=== PATIENT | female | born 1970 | race Caucasian/White ===

== ENCOUNTER 2017-07-06 16:41 | Emergency (ER) | payer BC ==
[2017-07-06 16:57] VITALS: BP 169/100
[2017-07-06] MEDS ORDERED: Tetan/Diph/Pertus SYR(Tdap)* 0.5 ML SYR(BOOSTRIX) use SYR IM ONE (16:59)
[2017-07-06] MEDS ORDERED: Lidocaine 2% 10 ML* VIAL INJ ONE (17:04)
[2017-07-06] MEDS ORDERED: Lidocaine 2% PF * 5 ML VIAL ONE (17:07)
[2017-07-06] MEDS ORDERED: Lidocaine 2% PF * 5 ML VIAL INJ ONE (17:07)
[2017-07-06] MEDS ORDERED: Ibuprofen TAB* 800 MG PO ONE (17:08)
--- NOTE | 2017-07-06 18:04 | RAD ---
INDICATION: Laceration COMPARISON: None TECHNIQUE: AP, lateral, and oblique views were obtained. FINDINGS: The soft tissue injury Elbow. There is no fracture or foreign body. IMPRESSION: SOFT TISSUE INJURY. NO FRACTURE.
--- NOTE | 2017-07-06 18:04 | ED ---
Upper Extremity Pain - HPI Summary HPI Summary: Rt hand dominant pt here w/ Lt finger tip avulsion injury while working with table saw tonight. Pain is moderate to severe. Has not tried anything for pain prior to arrival. Denies numbness, tingling, weakness. She is unsure of last tetanus vaccine and none given here per our records. Would like something for pain KENYON. - History of Current Complaint Chief Complaint: EDExtremityUpper Stated Complaint: FINGER LACERATOIN Time Seen by Provider: 07/06/17 16:57 Hx Obtained From: Patient - Allergies/Home Medications Allergies/Adverse Reactions: Allergies Allergy/AdvReac Type Severity Reaction Status Date / Time Penicillins [PCN] Allergy Unknown Verified 04/28/16 13:57 Reaction Details Hydrocodone AdvReac Intermediate Itching Verified 04/28/16 13:57 PMH/Surg Hx/FS Hx/Imm Hx Previously Healthy: Yes Endocrine/Hematology History: Denies: Hx Anticoagulant Therapy, Hx Blood Disorders Musculoskeletal History: Reports: Other Musculoskeletal History - right elbow lateral release s/p orthopaedic procedure Neurological History: Reports: Other Neuro Impairments/Disorders - HX BACK PAIN - SEES A CHIROPRACTOR Psychiatric History: Reports: Other Psychiatric Issues/Disorders - insomnia - takes trazodone and ambien - Surgical History Surgery Procedure, Year, and Place: [place]. intestinal surgery. bilateral elbow surgery. Tubal ligation Infectious Disease History: No Infectious Disease History: Denies: History Other Infectious Disease, Traveled Outside the [place] in Last 30 Days - Family History Known Family History: Positive: Other - positive for breast CA. - Social History Occupation: Employed Full-time - small business consultant Lives: With Family Alcohol Use: Rare Hx Substance Use: No Substance Use Type: Reports: None Hx Tobacco Use: No Smoking Status (MU): Never Smoked Tobacco Review of Systems Constitutional: Negative Negative: Vomiting, Nausea Positive: no symptoms reported Musculoskeletal: Other - pain as in HPI Skin: Other - lac as in HPI Neurological: Negative Negative: Weakness, Paresthesia, Numbness Positive: Anxious All Other Systems Reviewed And Are Negative: Yes Physical Exam Triage Information Reviewed: Yes Vital Signs On Initial Exam: Initial Vitals Temp Pulse Resp BP Pulse Ox 98.8 F 103 18 169/100 98 07/06/17 16:52 07/06/17 16:52 07/06/17 16:52 07/06/17 16:52 07/06/17 16:52 Vital Signs Reviewed: Yes Appearance: Positive: Well-Appearing, Well-Nourished, Pain Distress Skin: Positive: Warm - distal tip of Lt index finger w/ dorsal aspect with partial removal of nail and skin - no active bleeding at present but has sersanginous d/c - appears clean, no debris Head/Face: Positive: Normal Head/Face Inspection Eyes: Positive: EOMI ENT: Positive: Hearing grossly normal Respiratory/Lung Sounds: Positive: Breath Sounds Present Cardiovascular: Positive: Pulses are Symmetrical in both Upper and Lower Extremities Musculoskeletal: Positive: Normal, Strength/ROM Intact Neurological: Positive: Normal, Sensory/Motor Intact Psychiatric: Positive: Anxious - Mal Coma Scale Coma Scale Total: 15 Procedures - Laceration/Wound Repair 1 Location: upper extremity - Lt index finger Description: Irregular - avulsion Anesthesia: Digital, 2.0%, Lido Length, Depth and Shape: 6mm are involved Betadine Prep?: No Irrigated w/ Saline (ccs): 100 - sterile water and hibaclens Laceration/Wound Explored: clean Layer Closure?: No Sterile Dressing Applied?: Yes - xerform + gauze + coban Diagnostics - Vital Signs Vital Signs Temp Pulse Resp BP Pulse Ox 07/06/17 16:52 98.8 F 103 18 169/100 98 - Laboratory Lab Statement: Any lab studies that have been ordered have been reviewed, and results considered in the medical decision making process. Course/Dx - Diagnoses Provider Diagnoses: Avulsion of skin of index finger Discharge - Discharge Plan Condition: Stable Disposition: HOME Patient Education Materials: Skin Avulsion (ED) Referrals: Isha Naylor MD [Primary Care Provider] - Additional Instructions: Keep dressing clean, dry and in place for 48 hours. After this time, follow-up with PCP for wound check and redressing. Rest, ice, elevate and may wear splint for protection - PCP may guide you on further wound care as needed You may take ibuprofen alternating with acetaminophen for pain - if pain is worse or interfering with sleep, you may consider taking percocet - do not mix with trazodone and ambien as the combination may reduce ability to breath and impair decision making. Call your PCP tomorrow to schedule follow-up. *If you develop redness, swelling, purulent drainage, fever, chills in the meantime, seek medical attention KENYON
== END 2017-07-06 18:32 | disposition home or self-care (01) ==
LOC: ED 16:41
DX: S61.201A Unspecified open wound of left index finger without damage to nail, initial encounter (principal)
CPT/HCPCS: 73140; 90471; 90715; 99281; A9270-GY; J2001

== ENCOUNTER 2017-07-08 09:45 | Emergency (ER) | payer BC ==
[2017-07-08 09:50] VITALS: BP 127/98
--- NOTE | 2017-07-08 10:08 | ED ---
ED Suture/Wound Check - HPI Summary HPI Summary: Rt hand dominant pt here w/ Lt finger tip avulsion injury while working with table saw friday07/06/17. Is here for a wound recheck. has not had any complications or complaints since injury. Pain is mild to moderate, throbs at times. Denies numbness, tingling, weakness. - History Of Current Complaint Chief Complaint: EDGeneral Stated Complaint: RE-CK LT FINGER LAC Time Seen by Provider: 07/08/17 09:52 Hx Obtained From: Patient Onset/Duration: Sudden Onset Surgical Site: right index finger Severity: Mild Pain Intensity: 0 Pain Scale Used: 0-10 Numeric Procedure Type: avulsion, covered with xeroform Surgery Date: 07/06/17 Hands: 1 - avulsion - Allergies/Home Medications Allergies/Adverse Reactions: Allergies Allergy/AdvReac Type Severity Reaction Status Date / Time Penicillins [PCN] Allergy Unknown Verified 04/28/16 13:57 Reaction Details Hydrocodone AdvReac Intermediate Itching Verified 04/28/16 13:57 PMH/Surg Hx/FS Hx/Imm Hx Endocrine/Hematology History: Denies: Hx Anticoagulant Therapy, Hx Blood Disorders Musculoskeletal History: Reports: Other Musculoskeletal History - right elbow lateral release s/p orthopaedic procedure Neurological History: Reports: Other Neuro Impairments/Disorders - HX BACK PAIN - SEES A CHIROPRACTOR Psychiatric History: Reports: Other Psychiatric Issues/Disorders - insomnia - takes trazodone and ambien - Surgical History Surgery Procedure, Year, and Place: [facility]. intestinal surgery. bilateral elbow surgery. Tubal ligation - Immunization History Immunizations Up to Date: Yes Infectious Disease History: No Infectious Disease History: Denies: History Other Infectious Disease, Traveled Outside the [place] in Last 30 Days - Family History Known Family History: Positive: Other - positive for breast CA. - Social History Alcohol Use: Occasionally Hx Substance Use: No Substance Use Type: Reports: None Hx Tobacco Use: No Smoking Status (MU): Never Smoked Tobacco Review of Systems Constitutional: Negative Cardiovascular: Negative Respiratory: Negative Positive: Other - skin avulsion left index Neurological: Negative All Other Systems Reviewed And Are Negative: Yes Physical Exam Triage Information Reviewed: Yes Vital Signs On Initial Exam: Initial Vitals Temp Pulse Resp BP Pulse Ox 98.3 F 107 20 127/98 98 07/08/17 09:46 07/08/17 09:46 07/08/17 09:46 07/08/17 09:46 07/08/17 09:46 Vital Signs Reviewed: Yes Appearance: Positive: Well-Appearing, No Pain Distress, Well-Nourished Skin: Positive: Warm, Skin Color Reflects Adequate Perfusion, Dry, Other - skin avulsion (6mm) area of left distal tuft/index finger, including nail, appears to be healing nicely, no signs of infection or concerns at this time. Negative : Cold, Numb, Cyanosis @, Pale, Erythema @ Head/Face: Positive: Normal Head/Face Inspection ENT: Positive: Hearing grossly normal Respiratory/Lung Sounds: Positive: Clear to Auscultation, Breath Sounds Present. Negative: Rales, Rhonchi, Wheezes Cardiovascular: Positive: Normal, RRR, Pulses are Symmetrical in both Upper and Lower Extremities - 2+ radial Musculoskeletal: Positive: Normal, Strength/ROM Intact, Pain @ - sesnitive to touch avulsed area Neurological: Positive: Normal, Sensory/Motor Intact, Alert, Oriented to Person Place, Time - Mal Coma Scale Coma Scale Total: 15 Procedures - Laceration/Wound Repair 1 Location: Other - left index tuft Length, Depth and Shape: 6mm avulsion including some of nail. distal left index tuft Laceration/Wound Explored: clean Sterile Dressing Applied?: Yes - xeroform, kerlex, coban Diagnostics - Vital Signs Vital Signs Temp Pulse Resp BP Pulse Ox 07/08/17 09:46 98.3 F 107 20 127/98 98 - Laboratory Lab Statement: Any lab studies that have been ordered have been reviewed, and results considered in the medical decision making process. Course/Dx - Course Course Of Treatment: appears to be healing nicely, no signs of infection. dressing changed, new xeroform, kerlex and coban applied. change dressing 2-3 days. gently rinse and air dry, keep clean and dry. aware of worsening signs and symptoms. recommended 7 day recheck to ensure improvement. ibuprofen and NSAIDs - Differential Diagnoses Differential Diagnoses: Healing Wound, Other - avulsion, wound recheck - Clinical Impression Provider Diagnoses: Encounter for wound re-check, Avulsion of skin of finger Discharge - Discharge Plan Condition: Stable Disposition: HOME Patient Education Materials: Skin Avulsion (ED), Nail Avulsion (ED) Referrals: Isha Naylor MD [Primary Care Provider] - Additional Instructions: Take dressing off in 2-3 days and look for signs of infection as discussed. Sooner if felt necessary. Gently rinse and wash, re-dress with triple antibiotic ointment. Keep clean and dry. Rest, elevate and apply cool compresses. Ibuprofen for pain and inflammation. Any new or worsening symptoms or signs of infection please seek medical attention immediately. Recommend re-check with PCP in 1 week.
== END 2017-07-08 10:10 | disposition home or self-care (01) ==
LOC: ED 09:45
DX: S61.211D Laceration without foreign body of left index finger without damage to nail, subsequent encounter (principal); W31.2XXD Contact with powered woodworking and forming machines, subsequent encounter
CPT/HCPCS: 99281

== ENCOUNTER 2017-07-28 12:16 | Emergency (ER) | payer BC ==
[2017-07-28 12:49] VITALS: BP 131/79
--- NOTE | 2017-07-28 14:02 | UC ---
Throat Pain/Nasal Alonso HPI - History of Current Complaint Chief Complaint: UCRespiratory Stated Complaint: COUGH Time Seen by Provider: 07/28/17 13:51 Hx Obtained From: Patient Hx Last Menstrual Period: 2 wks ago ?: No Onset/Duration: Gradual Onset, Lasting Weeks - 3 weeks, Still Present, Worse Since - 1 week Severity: Moderate Pain Intensity: 5 - sinus pain Pain Scale Used: 0-10 Numeric Cough: Nonproductive Associated Signs & Symptoms: Positive: Sinus Discomfort, Nasal Discharge - green discharge. Negative: Fever - Epiglottits Risk Factors Epiglottis Risk Factors: Negative - Allergies/Home Medications Allergies/Adverse Reactions: Allergies Allergy/AdvReac Type Severity Reaction Status Date / Time Penicillins [PCN] Allergy Unknown Verified 07/28/17 12:49 Reaction Details Hydrocodone AdvReac Intermediate Itching Verified 07/28/17 12:49 PMH/Surg Hx/FS Hx/Imm Hx Other History Of: Negative For: Anticoagulant Therapy - Surgical History Surgical History: Yes Surgery Procedure, Year, and Place: [place]. intestinal surgery. bilateral elbow surgery. Tubal ligation - Family History Known Family History: Positive: Other - positive for breast CA. - Social History Alcohol Use: Occasionally Substance Use Type: None Smoking Status (MU): Never Smoked Tobacco Physical Exam Vital Signs: Initial Vital Signs Temp 98.4 F 07/28/17 12:46 Pulse 92 07/28/17 12:46 Resp 18 07/28/17 12:46 BP 131/79 07/28/17 12:46 Pulse Ox 100 07/28/17 12:46 Discharge - Discharge Plan Condition: Stable Disposition: HOME Prescriptions: Albuterol HFA INHALER* [Ventolin HFA Inhaler*] 1 - 2 puff INH Q6H PRN #1 mdi PRN Reason: Cough Azithromyxin RANDI (NF) [Z-Randi (Zithromax) 250 mg tabs #6] 2 tab PO .TODAY, THEN 1 DAILY #6 tab Fluticasone NASAL SPRAY 50MCG* [Flonase NASAL SPRAY 50MCG*] 2 spray BOTH NARES DAILY #1 btl Patient Education Materials: Sinusitis (ED) Referrals: [facility] [place] [facility]ERR[facility] [Outside] - If Needed Additional Instructions: 1- Please increase fluid intake and rest. take full course of antibiotic to avoid resistance 2-Use Flonase as directed to help drain fluid. Also buy saline drops to clear sinuses 3-Take Sudafed or Claritin PO to alleviates sinus congestion 4-Return to the clinic or PCP if symptoms do not improve for further management and treatment
== END 2017-07-28 14:00 | disposition home or self-care (01) ==
LOC: UCEAST 12:16
DX: R05 Cough (principal); Z88.0 Allergy status to penicillin
CPT/HCPCS: 99212; G0463